=== PATIENT | female | born 1980 | race Caucasian/White ===

== ENCOUNTER 2020-07-18 14:37 | Outpatient (REF) | payer BC, SELFPAY ==
--- NOTE | ~2020-07-18 | XR_ITS ---
EXAMINATION: XR HIP, LEFT CLINICAL INFORMATION: Pain in left hip COMPARISON: None TECHNIQUE: AP view of the pelvis with AP and frog-leg lateral views of left hip. FINDINGS: Bones and soft tissues are normal. No fracture. Alignment is anatomic. Hip joint space is maintained. XR/XR hip LT w PEL1V IMPRESSION: Normal left hip.
== END 2020-07-18 14:38 | disposition home or self-care (01) ==
LOC: HO.HMGCX 14:37
PROVIDERS: PCP Internal Medicine; Visit Provider Nurse Practitioner Family
DX: M25.559 Pain in unspecified hip (principal)
CPT/HCPCS: 73502

== ENCOUNTER 2020-09-04 08:00 | Outpatient (RCR) | payer BC, SELFPAY ==
--- NOTE | 2020-08-11 15:37 | MHC.PT.EP ---
[facility] [place] Office [place] Office [place] Office [address] [phone] F: [phone] F: [phone] F: [phone] F: [phone] Physical Therapy Plan of Care Date of Evaluation: 08/11/20 Date of Surgery: NA Diagnosis: HIP PAIN Assessment: Pt IS 40 YO F REFERRED TO PT WITH L HIP PAIN OF INSIDIOUS ONSET. Pt REPORTS PAIN HAS NOW MOVED TO R HIP WELL. REPORTS SHE IS MOST LIMITED BY HER ABILITY TO RUN FOR EXERCISE (PAIN SEEMS TO HAVE COINCIDED WITH HER RE-START OF RUNNING ON TM). REPORTS SOME RELIEF WITH NSAID. PRESENTS WITHOUT SIGNIFICANT WEAKNESS OR INFLEXIBILITY. Pt WAS NOTED TO HAVE HIGH ARCHES AND SLIGHT PELVIC ASYMMETRY WITH A SLIGHT POP R HIP AFTER SCOUR TEST (?LABRAL ISSUE). Pt REPORTS DOING STRETCHES AND EXS AT HOME. SHOULD BENEFIT FROM PT TO FURTHER ASSESS RUNNING (EVAL ON TM NEXT SESSION) AND MONITOR PELVIS WITH REV/ADDITION STRETCH/STRENGTHENING EXS WITH POSSIBLE TRIAL ARCH TAPING IF INDICATED. Frequency and Duration: The patient will be seen 2X/WK X 4 WKS Short Term Goals: 1. I HEP WITH DC EX PLAN 2. IMPROVED PELVIC SYMMETRY AND/OR SELF MET [employer] Goals: 1. DECREASED HIP PAIN WITH RUNNING Treatment Plan: Modalities to reduce pain, spasms and effusion. Manual therapy to restore motion and function. Therapeutic exercise to improve strength and flexibility. Neuromuscular re-education for posture and balance. Therapeutic activities to return to functional activities of daily living. Electronically signed by: VALENCIA SOTO PT Please sign and return to therapist. Thank you for your referral.
--- NOTE | 2020-09-04 09:20 | MHC.PT.DC ---
[facility] [place] Office [place] Office [place] Office [address] [phone] F: [phone] F: [phone] F: [phone] F: [phone] Physical Therapy Discharge Report Diagnosis: HIP PAIN Date of Surgery: NA Date of Evaluation: 08/11/20 Date of Discharge: 09/04/20 Treatments to Date: 6 Cancellations to Date: No Shows to Date: Discharge Status: Achieved Goals Independent with HEP Discharge Summary: GOOD PERF EXS/STRETCHES WITHOUT C/O INCREASE IN PAIN, HAS MET PT STGS AND ED RE SLOW PROGRESSION FROM WALK>FAST WALK>SLOW JOG>JOG>RUN Electronically signed by: VALENCIA SOTO PT Please sign and return to therapist. Thank you for your referral.
== END 2020-09-04 09:23 | disposition other institution (70) ==
LOC: HO.PT 08:00
PROVIDERS: PCP Internal Medicine; Visit Provider Nurse Practitioner Family
DX: M25.552 Pain in left hip (principal)
CPT/HCPCS: 97110; 97140; 97161; 97530

== ENCOUNTER 2020-10-24 09:11 | Outpatient (REF) | payer BC, OTHER, SELFPAY ==
--- NOTE | ~2020-10-24 | MM_ITS ---
EXAMINATION: MM SCREENING DIGITAL BREAST TOMOSYNTHESIS, BILATERAL CLINICAL INFORMATION: Screening. Asymptomatic. Age 40. No prior breast imaging. No known family history of breast cancer. The lifetime risk of breast cancer based on the Tyrer-Cuzick Model is 10%. COMPARISON: None (current study represents initial baseline exam). TECHNIQUE: Digital breast tomosynthesis is performed in both the craniocaudal and mediolateral oblique views along with computer-aided detection (CAD). Synthesized 2D images are generated from the tomosynthesis. FINDINGS: The breasts are heterogeneously dense, which may obscure small masses (ACR BI-RADS breast composition Category c). Breast tissue composition borders on average fibroglandular. There is no mass or architectural abnormality or abnormal calcifications. The axilla and skin contours are unremarkable. MM/MM tomosynthesis screening BI IMPRESSION: No mammographic evidence of malignancy. ASSESSMENT: BI-RADS 1: Negative RECOMMENDATION: Routine annual mammography screening. This patient's information was entered into a reminder system with a target due date for their next mammogram.
[2020-10-24 10:04] LABS: MANUAL DIFF FLAG NO
[2020-10-24 10:07] LABS: Basophils Percent Auto 0.6 % (0-2); Eosinophils Absolute Auto 0.2 X10*3/uL (0.0-0.4); Eosinophils Percent Auto 2.1 % (0-4); Hemoglobin 13.7 g/dl (12.0-16.0); Imm Gran Abs Auto 0.01 X10*3/uL (0.00-0.03); Imm Gran Pct Auto 0.1 % (0.0-0.4); Lymphocytes Absolute Auto 2.5 X10*3/uL (1.2-4.9); Lymphocytes Percent Auto 34.4 % (20-40); Mean Corpuscular HGB Conc 33.4 g/dl (31.0-35.0); Mean Corpuscular Hemoglobin 29.3 pg (27.0-33.0); Mean Corpuscular Volume 87.8 fL (80-98); Mean Platelet Volume 10.5 fL (9.4-12.3); Monocytes Absolute Auto 0.4 X10*3/uL (0.1-1.2); Monocytes Percent Auto 5.2 % (2-11); Neutrophils Absolute Auto 4.1 X10*3/uL (2.0-8.3); Neutrophils Percent Auto 57.6 % (45-73); Platelet Count 251 X10*3/uL (160-400); Red Blood Count 4.67 X10*6/uL (4.20-5.50); White Blood Count 7.2 X10*3/uL (4.8-10.8)
[2020-10-24 10:30] LABS: Alanine Aminotransferase 57 U/L (0-31); Albumin Level 4.1 g/dL (3.5-5.0); Alkaline Phosphatase 62 U/L (39-117); Anion Gap 10 (12-20); Aspartate Amino Transferase 41 U/L (5-31); Bilirubin Total 0.7 mg/dL (0.0-1.0); Blood Urea Nitrogen 11 mg/dL (9-16); Carbon Dioxide 26 mmol/L (22-29); Chloride 106 mmol/L (96-108); Cholesterol 208 mg/dL; Estimated Glomerular Filt Rate > 60; Glucose Fasting 83 mg/dL (60-99); HDL Cholesterol 53 mg/dL; LDL Cholesterol Calculated 118 mg/dl; Sodium 138 mmol/L (135-145); Total Protein 6.9 g/dL (6.5-8.0); Triglycerides 189 mg/dL
== END 2020-10-24 09:12 | disposition home or self-care (01) ==
LOC: HO.MAMMO 09:11
PROVIDERS: PCP Internal Medicine; Visit Provider Internal Medicine
DX: Z00.00 Encounter for general adult medical examination without abnormal findings (principal); Z12.31 Encounter for screening mammogram for malignant neoplasm of breast
CPT/HCPCS: 36415; 77063; 77067; 80053; 80061; 85025